=== PATIENT | male | born 1960 | race Hispanic/Latino ===

== ENCOUNTER 2019-12-06 22:39 | Emergency (ER) | payer OTHER ==
[~2019-12-06] VITALS: Ht 172.7 cm; Wt 63.5 kg
[2019-12-07 00:15] LABS: PLATELET COUNT 344 K/uL (142-355)
[2019-12-07 00:27] LABS: POTASSIUM 3.4 mmol/L (3.6-5.2)
[2019-12-07 01:35] VITALS: BP 142/85; TEMP 97.6
== END 2019-12-07 01:35 | disposition home or self-care (01) ==
LOC: ED 22:39
PROVIDERS: Emergency Medicine
DX: T78.49XA Other allergy, initial encounter (principal)
CPT/HCPCS: 36415; 80053; 80307; 80320; 83605; 85027; 96360; 96375; 99284; J1200; J2405; J2930

== ENCOUNTER 2020-03-04 15:00 | Outpatient (CLI) | payer OTHER | END 2020-03-04 22:35 | disposition home or self-care (01) | LOC: CT 15:00 | DX: M54.16 Radiculopathy, lumbar region (principal) ==

== ENCOUNTER 2020-03-05 14:13 | Outpatient (CLI) | payer OTHER | END 2020-03-05 22:36 | disposition home or self-care (01) | LOC: CT 14:13 | DX: M54.12 Radiculopathy, cervical region (principal) ==

== ENCOUNTER 2020-07-04 10:09 | Outpatient (CLI) | payer OTHER | END 2020-07-04 21:11 | disposition home or self-care (01) | LOC: US 10:09 | PROVIDERS: ATTEND Nurse Practitioner | DX: R55 Syncope and collapse (principal) ==

== ENCOUNTER 2021-07-22 13:00 | Emergency (ER) | payer OTHER ==
[~2021-07-22] VITALS: Ht 172.7 cm; Wt 63.5 kg
[2021-07-22 13:04] VITALS: BP 140/89; TEMP 98.1
== END 2021-07-22 14:20 | disposition still patient (30) ==
LOC: ED 13:00
DX: Z53.21 Procedure and treatment not carried out due to patient leaving prior to being seen by health care provider (principal)

== ENCOUNTER 2022-07-28 08:00 | Outpatient (CLI) | payer OTHER | END 2022-07-28 19:23 | disposition home or self-care (01) | LOC: CT 08:00 | PROVIDERS: ATTEND Orthopaedic Surgery | DX: M54.2 Cervicalgia (principal); M54.12 Radiculopathy, cervical region; M48.02 Spinal stenosis, cervical region ==